=== PATIENT | female | born 1950 | race Caucasian/White ===

== ENCOUNTER 2024-05-11 09:56 | Day surgery (SDC) | payer MEDICARE, OTHER, SELFPAY ==
[2024-05-07 10:43] VITALS: BMI 37.9
[2024-05-11 10:09] VITALS: BMI 37.1
--- NOTE | 2024-05-11 10:30 | MHC.SHP ---
Pre-Procedural Eval Section A - 24 Hr Update-Section A only Date of Service: 05/11/24 The patient is an INPATIENT: No Changes since office visit: No Cold of Flu in the past 2 weeks, No New Medical Problems, No Changes in Medication and No Patient answered all questions The patient has been examined within 24 hours of the surgical procedure. The History & Physical has been completed within 30 days and I have reviewed it.: Yes Section B - Complete if H&P > 30 days Chief Complaint: Epigastric pain Allergies: Allergies Allergy/AdvReac Type Severity Reaction Status Date / Time Sulfa (Sulfonamide Allergy Unknown Unknown Verified 05/11/24 10:06 Antibiotics) Plan I have reviewed the history and physical and performed a pertinent physical examination on my patient. No changes have occurred unless specified. Time Spent With Patient Time: Total time managing care of this patient today ____ minutes.
[2024-05-11 10:34] VITALS: BP 172/80; PULSE 50; RESP 15; TEMP 36.9; O2SAT 98
[2024-05-11 10:38] VITALS: BP 161/72
[2024-05-11] MEDS: Lactated Ringers 1,000 ML 50 ML IVCONT (10:38)
--- NOTE | 2024-05-11 11:25 | HO.ANESPROP2 ---
[facility] Past Medical History Medical History (Updated 05/11/24 @ 10:16 by Tasha Bell RN) Fatty liver PAF (paroxysmal atrial fibrillation) Diabetes Diverticulosis Nephrolithiasis Iron deficiency anemia CAD (coronary artery disease) Elevated cholesterol HTN (hypertension) Family History Family history of problems with anesthesia: No Surgical History Surgical History (Updated 05/11/24 @ 10:06 by Tasha Bell RN) History of back surgery History of esophagogastroduodenoscopy (EGD) Hx of foot surgery Hx of hernia repair H/O colonoscopy Hx of heart artery stent History of Problems with Anesthesia: No Social History Social History (Updated 05/07/24 @ 10:45 by Silvia Clark RN) Patient Tobacco Use Status: Former Tobacco user Use of substances other than those prescribed or required for medical reasons: Yes Substance Use Frequency: Occasionally Are you DNR?: No Advance Directives: No Advance Directives Information Provided: Yes Meds Allergies Allergy/AdvReac Type Severity Reaction Status Date / Time Sulfa (Sulfonamide Allergy Unknown Unknown Verified 05/11/24 10:06 Antibiotics) Active Medications: Current Medications Lactated Ringer's (Lr) 1,000 mls @ 50 mls/hr IVCONT .Q20H JAYSON Last Admin: 05/11/24 10:38 Dose: 50 mls/hr Home Medications ?Medication ?Instructions ?Recorded ?Confirmed ?Last Taken ?Type apixaban 5 mg tablet (Eliquis) 5 mg PO BID 05/07/24 05/11/24 05/08/24 History ezetimibe 10 mg tablet (Zetia) 10 mg PO DAILY 05/07/24 05/11/24 Unknown History lisinopril 20 1 tab PO DAILY 05/07/24 05/11/24 Unknown History mg-hydrochlorothiazide 12.5 mg tablet metoprolol succinate 25 mg 25 mg PO BEDTIME 05/07/24 05/11/24 Unknown History tablet,extended release 24 hr omeprazole 20 mg tablet,delayed 20 mg PO DAILY 05/07/24 05/11/24 05/11/24 08:30 History release aspirin 81 mg tablet 81 mg PO BEDTIME 05/11/24 05/11/24 05/10/24 History atorvastatin 80 mg tablet 80 mg PO BEDTIME 05/11/24 05/11/24 Unknown History Exam Height,Weight and Vital Signs: Height 5 ft 4 in Weight 97.976 kg Last Vital Signs Temp 98.5 F 05/11/24 10:34 Pulse 50 05/11/24 10:34 Resp 15 05/11/24 10:34 BP 161/72 H 05/11/24 10:38 Pulse Ox 98 05/11/24 10:34 O2 Del Method Room Air 05/11/24 10:34 Airway Mallampati Class: II TM Dist: >3cm Neck ROM: Full Assessment and Plan Assessment Anesthesia Assessment: Anesthesia Plan Discussed and Chart Reviewed Final Anesthetic Review Family History of Problems with Anesthesia: No History of Problems with Anesthesia: No NPO: Yes ASA Class: III Final Preanesthetic Review: No Changes in Pt Med Stat, Meds/Allgs Chart Reviewed, Consent Obtained/Reviewed and Anes Risks/Benef Reviewed Patient Risk: Intermediate Procedure Risk: Low Anesthetic Plan Anesthetic Plan: TIVA Disposition: Standard PACU
[2024-05-11 11:55] VITALS: BP 114/60; PULSE 60; RESP 16; TEMP 36.7; O2SAT 91
--- NOTE | 2024-05-11 12:03 | OP_ITS ---
DATE OF SERVICE: 05/11/2024 SURGEON: Giovanni Torres MD INDICATIONS: Epigastric pain and gastroesophageal reflux disease. PREOPERATIVE DIAGNOSIS: POSTOPERATIVE DIAGNOSIS: PROCEDURE PERFORMED: Upper endoscopy with biopsy. ESTIMATED BLOOD LOSS: COMPLICATIONS: ANESTHESIA: Monitored anesthesia care. ASSISTANTS: SPECIMENS: DESCRIPTION OF PROCEDURE: A history and physical was performed. The risks and benefits of the procedure were explained to the patient and informed consent was obtained. The patient was placed in the left lateral decubitus position. The Olympus video gastroscope was introduced into the esophagus, stomach, and duodenum. Examination was performed and the scope was removed. She tolerated the procedure well with brief desaturation that was managed by anesthesia. FINDINGS: Esophagus: There was an irregular EG junction. This was biopsied. There was slight ridging to the body of the esophagus and biopsies were obtained at 30 cm. Stomach: The stomach showed a few small less than 5 mm polyps in the body consistent with fundic gland polyps. Antral biopsies were obtained to evaluate for H pylori. Duodenum: The bulb and 2nd portion were normal. The 2nd portion biopsies were obtained. IMPRESSION: 1. Gastroesophageal reflux disease. 2. Gastric polyps. RECOMMENDATION: Follow up the biopsy results. MD TRINH Waters/JENNY / [id number]
[2024-05-11 12:10] VITALS: BP 144/71; PULSE 52; RESP 16; TEMP 36.7; O2SAT 95
== END 2024-05-11 12:41 | disposition home or self-care (01) ==
PROVIDERS: PCP Internal Medicine; Visit Provider Internal Medicine Gastroenterology
PROC: 0DJ08ZZ Inspection of Upper Intestinal Tract, Via Natural or Artificial Opening Endoscopic (ICD-10-PCS; CPT 43235; principal; 2024-05-11 11:40)
DX: R10.13 Epigastric pain (principal); K21.9 Gastro-esophageal reflux disease without esophagitis; K31.7 Polyp of stomach and duodenum; I10 Essential (primary) hypertension; Z79.899 Other long term (current) drug therapy; Z80.0 Family history of malignant neoplasm of digestive organs
CPT/HCPCS: 43239; 88305; 88313; 88342; J1596; J2704